=== PATIENT | male | born 1995 | race Two or more races ===

== ENCOUNTER 2017-09-10 15:39 | Emergency (ER) | payer OTHER ==
[~2017-09-10] VITALS: Ht 152.4 cm; Wt 49.9 kg
[2017-09-10] MEDS ORDERED: CLOTRIMAZOLE15 GM TOPIC (16:34)
[2017-09-10 16:40] VITALS: BP 120/72
--- NOTE | 2017-09-11 22:28 | Emergency Room Report ---
History of Present Illness General Chief Complaint: Male Urogenital Problems Source: Patient Present Illness HPI 21-year-old male presents ED for evaluation. Patient states he has a rash on his penis for the last 3 days. States it is red and bumpy and itchy. Denies any pain except for during intercourse. Denies any discharge. Denies any testicular pain. No other aggravating relieving factors. Denies any other associated symptom Allergies: Coded Allergies: No Known Allergies (Unverified , 09/10/17) Patient History Past Medical History: none Past Surgical History: none Pertinent Family History: none Social History: Denies: smoking, alcohol use, drug use Immunizations: UTD Reviewed Nursing Documentation: PMH: Agreed, PSxH: Agreed Nursing Documentation-PMH Past Medical History: No Stated History Review of Systems All Other Systems: negative except mentioned in HPI Physical Exam Vital Signs Date Time Temp Pulse Resp B/P (MAP) Pulse Ox O2 Delivery O2 Flow Rate FiO2 09/10/17 15:57 97.5 58 18 122/74 100 Room Air Sp02 EP Interpretation: reviewed, normal General Appearance: no apparent distress, alert, GCS 15, non-toxic Head: normocephalic Eyes: bilateral eye normal inspection, bilateral eye PERRL ENT: normal ENT inspection Neck: normal inspection Respiratory: normal inspection Cardiovascular #1: normal inspection Gastrointestinal: normal inspection Rectal: deferred Genitourinary: no CVA tenderness, other - red bumpy rash to head of penis. no induration. no discharge Musculoskeletal: normal inspection Neurologic: alert, oriented x3, responsive, motor strength/tone normal, sensory intact, speech normal Psychiatric: normal inspection Skin: normal inspection Lymphatic: normal inspection Medical Decision Making Diagnostic Impression: Primary Impression: Penile rash ER Course Hospital Course 21-year-old male presents to ED with rash to penis Differential diagnoses include: Cellulitis, dermatitis, insect bite, abscess Clinical course Patient placed on stretcher. After initial history, physical exam reveals a young male in no acute distress. On exam there is a bumpy red rash noted to the head of the penis. consistent with fungal infection vs balantis reassurance given. not suspicious for STD Diagnosis - penile rash stable and discharged to home with prescription for Clotrimazole. Instructed to followup with PMD. Instructed return to ED if symptoms recur or worsen Last Vital Signs Date Time Temp Pulse Resp B/P (MAP) Pulse Ox O2 Delivery O2 Flow Rate FiO2 09/10/17 16:40 97.5 60 18 120/72 100 Room Air Status: improved Disposition: HOME, SELF-CARE Condition: Stable Scripts Clotrimazole* (LOTRIMIN*) 15 Gm Cream..g. 1 APPLIC TOPIC TWICE A DAY for 10 Days, #15 GM Prov: SHYLA GALLOWAY M.D. 09/10/17 Referrals: [facility] (PCP) Patient Instructions: SHYLA Mott M.D. Sep 11, 2017 22:28
== END 2017-09-10 16:40 | disposition home or self-care (01) ==
LOC: EMR 16:24
DX: R21 Rash and other nonspecific skin eruption (principal)
CPT/HCPCS: 99283

== ENCOUNTER 2018-07-11 23:04 | Emergency (ER) | payer OTHER ==
[~2018-07-11] VITALS: Ht 167.6 cm; Wt 70.3 kg
[~2018-07-11 23:04] MED LIST: CLOTRIMAZOLE15 GM TOPIC
[2018-07-11 23:40] VITALS: BP 127/74
[2018-07-11] MEDS ORDERED: LET 3ml Soln TOPIC ONE (23:45)
--- NOTE | 2018-07-11 23:48 | Emergency Room Report ---
History of Present Illness General Chief Complaint: Laceration Source: Patient Present Illness HPI Patient reports approximate 2 hours prior to arrival he was cutting a piece of wood with a knife The knife slipped and essentially sustained a puncture type wound to the left thumb Pain is 5 out of 10 Bleeding was fairly well controlled with some pressure Denies any wrist pain denies any other Chest pain or lapse of consciousness Allergies: Coded Allergies: No Known Allergies (Unverified , 07/11/18) Patient History Past Medical History: see triage record Pertinent Family History: none Reviewed Nursing Documentation: PMH: Agreed; PSxH: Agreed Nursing Documentation-PMH Past Medical History: No Stated History Review of Systems All Other Systems: negative except mentioned in HPI Physical Exam Vital Signs Date Time Temp Pulse Resp B/P (MAP) Pulse Ox O2 Delivery O2 Flow Rate FiO2 07/11/18 23:12 98.1 57 14 127/74 97 Room Air Sp02 EP Interpretation: reviewed, normal General Appearance: well appearing, no apparent distress Head: normocephalic, atraumatic Eyes: bilateral eye PERRL, bilateral eye EOMI ENT: hearing grossly normal, normal pharynx, TMs + canals normal, uvula midline Neck: full range of motion, supple, no meningismus, no bony tend Respiratory: lungs clear, normal breath sounds, no rhonchi, no respiratory distress, no retraction, no accessory muscle use Cardiovascular #1: normal peripheral pulses, regular rate, rhythm, no edema, no gallop, no JVD, no murmur Gastrointestinal: normal bowel sounds, non tender, soft, no mass, no organomegaly, non-distended, no guarding, no hernia, no pulsatile mass, no rebound Genitourinary: no CVA tenderness Musculoskeletal: normal inspection Neurologic: oriented x3, responsive, sonoscope operator III-XII nml as tested, motor strength/ tone normal, sensory intact Psychiatric: mood/affect normal Skin: other - Approximate 1 cm laceration distal aspect of the palmar side of the left thumb, there is a mid point aspect that appears to have a deeper puncture the bilateral lateral aspect of the lacerations are more superficial Lymphatic: normal inspection, no adenopathy Procedures Splinting Splinting : Consent: Verbal Location: Left thumb Pre-Made Type: metal Splint: Thumb splint Pre-Proc Neuro Vasc Exam: normal Post-Proc Neuro Vasc Exam: normal Patient Tolerated: Well Complications: None Laceration/Wound Repair Laceration/Wound Repair : Consent: Verbal Wound Location: upper extremity Wound's Depth, Shape: into muscle Wound Length (cm): 1 Wound Explored: clean Irrigated w/ Saline (ccs): 200 Betadine Prep?: Yes Anesthesia: other - LET Wound Debrided: minimal Wound Repaired With: sutures Suture Size/Type: 6:0 Number of Sutures: 3 Layer Closure?: No Patient Tolerated: Well Complications: None Medical Decision Making Diagnostic Impression: Primary Impression: Laceration ER Course Given the history and presentation area was cleansed and prepped Refer to the laceration repair for the full details Patient tolerated the procedure well we had good wound approximation Given the stab-type/puncture type injury patient was placed on antibiotics and will have close outpatient follow-up Last Vital Signs Date Time Temp Pulse Resp B/P (MAP) Pulse Ox O2 Delivery O2 Flow Rate FiO2 07/11/18 23:12 98.1 57 14 127/74 97 Room Air Status: improved Disposition: HOME, SELF-CARE Condition: Improved Scripts Ibuprofen* (MOTRIN*) 600 Mg Tablet 600 MG ORAL Q8H PRN for For Pain, #20 TAB 0 Refills Prov: Miesha Estes DO 07/12/18 Amoxicillin/Potassium Clav 875-125* (AUGMENTIN 875-125 TABLET*) 1 Each Tablet 1 TAB ORAL TWICE A DAY, #14 TAB Prov: Miesha Estes DO 07/12/18 Additional Instructions: Patient is provided with the discharge instructions notified to follow up with primary doctor in the next 2-3 days otherwise return to the er with any worsening symptoms. Please note that this report is being documented using [employer] technology. This can lead to erroneous entry secondary to incorrect interpretation by the dictating instrument. Miesha Estes DO Jul 11, 2018 23:48
[2018-07-12] MEDS ORDERED: IBUPROFEN600 MG ORAL (00:22)
[2018-07-12] MEDS ORDERED: AUGMENTIN 875-1 EAC1 ORAL (00:22)
[2018-07-12 00:32] VITALS: BP 127/74
== END 2018-07-12 00:32 | disposition home or self-care (01) ==
LOC: EMR 23:24
DX: S61.012A Laceration without foreign body of left thumb without damage to nail, initial encounter (principal); W26.0XXA Contact with knife, initial encounter; Y92.9 Unspecified place or not applicable
CPT/HCPCS: 12001; 99283; Z7502; 29130